=== PATIENT | female | born 1990 | race Caucasian/White ===

== ENCOUNTER 2019-06-13 18:44 | Emergency (ER) | payer BC ==
[~2019-06-13] VITALS: Ht 157.5 cm; Wt 82.6 kg
[2019-06-13 18:51] VITALS: Ht 157.5 cm; Wt 82.6 kg
[2019-06-13 20:54] LABS: BASOPHIL % 0.4 % (0-2); PLATELET COUNT 348 x10^3mcL (130-400); RED CELL DISTRIBUTION WIDTH 13.2 % (11.5-14.5)
[2019-06-13 21:03] LABS: CALCIUM 8.8 mg/dL (8.5-10.1); CARBON DIOXIDE 31.5 mmol/L (21-32); CHLORIDE SERUM 102 mmol/L (98-107); CREATININE SERUM 0.7 mg/dL (0.6-1.0); GFR1 > 60 mL/min; GLUCOSE SERUM 128 mg/dL (74-106); POTASSIUM SERUM 3.7 mmol/L (3.5-5.1); SODIUM SERUM 140 mmol/L (136-145)
[2019-06-13 21:09] LABS: ALKALINE PHOSPHATASE 62 U/L (46-116); ALT/SGPT 20 U/L (14-59); AST/SGOT 15 U/L (15-37); BILIRUBIN TOTAL 0.24 mg/dL (0.20-1.00); TOTAL PROTEIN, SERUM 7.7 g/dL (6.4-8.2)
[2019-06-13 22:29] VITALS: BP 123/63
== END 2019-06-13 22:25 | disposition home or self-care (01) ==
LOC: ED 18:44
PROVIDERS: Emergency Medicine
DX: J45.909 Unspecified asthma, uncomplicated (principal); I10 Essential (primary) hypertension; E11.9 Type 2 diabetes mellitus without complications; Z88.0 Allergy status to penicillin; Z88.1 Allergy status to other antibiotic agents
CPT/HCPCS: 36415; 82962; 87804; Q0092